=== PATIENT | female | born 1970 | race Caucasian/White ===

== ENCOUNTER → 2019-01-30 | Outpatient (CLI) | payer BC ==
--- NOTE | 2019-01-30 19:39 | Diagnostic Imaging Report ---
INDICATION: Routine screening. Comparison is made with prior mammograms from 11/14/2015 and 08/20/2014. 2-D and 3-D bilateral screening mammography was performed with Computer-Aided Detection (CAD) system. FINDINGS: Both breasts remain heterogeneously dense, limiting the sensitivity of mammography. No dominant mass or malignant-appearing microcalcifications are seen. The axillae are unremarkable. IMPRESSION: No mammographic features suspicious for malignancy are identified. ACR BI-RADS Category 1: Negative. Result letter will be mailed to the patient. Note: At least 10% of breast cancer is not imaged by mammography. Dictated by: Dictated on workstation # [id number]
== END ==
LOC: RAD 10:32
PROVIDERS: ATTEND Obstetrics & Gynecology
DX: Z12.31 Encounter for screening mammogram for malignant neoplasm of breast (principal)
CPT/HCPCS: 77067

== ENCOUNTER → 2020-12-23 | Outpatient (CLI) | payer BC ==
[~2020-12-23] MED LIST: CATHETER FLUSH 10 ML SYR IV PRN
--- NOTE | 2020-12-23 15:11 | Diagnostic Imaging Report ---
INDICATION: Hip pain. EXAMINATION: Three-phase bone scan. This study was performed following administration of 26.7 mCi of 90 9M technetium MDP. Blood flow, blood pool pool and delayed images of the pelvis lower lumbar spine and proximal femurs was obtained. COMPARISON: There is no prior study available for comparison. FINDINGS: On the delayed images there is increased uptake within the greater trochanter of the right femur. There appears to be a photopenic defect in the region of the right femoral head and neck suggesting a total hip prosthesis. The abnormal signal in the greater trochanter could be related to an acute/subacute bone injury. It would be less likely that this abnormal uptake is related to osteomyelitis as the blood flow study is generally unremarkable. However, the possibility that there is loosening of the prosthesis should be considered. If plain film examinations are available they would be helpful for comparison. There is no other abnormal uptake of the radiotracer to suggest an acute abnormality. IMPRESSION: 1.There is a small focus of abnormal uptake involving the greater trochanter on the right. Whether this is related to an acute/subacute bone injury or loosening of the suspected total hip prosthesis is not certain. Recommendations as above. 2. There is no acute bony abnormality identified otherwise. Dictated by: Dictated on workstation # [id number]
== END ==
LOC: CARD 11:26
PROVIDERS: ATTEND Physician Assistant
DX: M25.559 Pain in unspecified hip (principal)
CPT/HCPCS: 78315; A9503

== ENCOUNTER → 2021-04-14 | Outpatient (CLI) | payer BC | LOC: LABNPT 06:28 | PROVIDERS: ATTEND Orthopaedic Surgery | DX: Z01.812 Encounter for preprocedural laboratory examination (principal); Z20.822 Contact with and (suspected) exposure to COVID-19 | CPT/HCPCS: 87635 ==

== ENCOUNTER → 2021-04-18 | Outpatient (CLI) | payer BC ==
--- NOTE | 2021-04-18 09:26 | Diagnostic Imaging Report ---
INDICATION: Postmenopausal state. COMPARISON: None available FINDINGS: AP Spine L1-L4: [BMD (g/cm2): 1.020] [T-Score: -1.3] [Z-Score: -0.7] [BMD Previous: na] [BMD % Change: na] LT Hip Neck: [BMD (g/cm2): 0.949] [T-Score: -0.6] [Z-Score: 0.3] LT Hip Total: [BMD (g/cm2):0.926] [T-Score:-0.6] [Z-Score: -0.1] [BMD Previous: na] [BMD % Change: na] RT Hip Neck: [BMD (g/cm2):na] [T-Score:na] [Z-Score:na] RT Hip Total: [BMD (g/cm2):na] [T-score:na] [Z-Score:na] [BMD Previous:na] [BMD % Change:na] *Indicates significant change from prior examination based on 95% confidence level. World Health Organization criteria for BMD interpretation classify patients as Normal (T-score at or above -1.0), Osteopenic (T-score between -1.0 and -2.5) or Osteoporotic (T-score at or below -2.5). LIMITATIONS AND MODIFICATION: The right hip was not evaluated secondary to postsurgical changes. FRACTURE RISK (FRAX SCORE): The ten year probability of (%): Major Osteoporotic Fracture: [9.7] Hip Fracture: [1.4] IMPRESSION: 1. Osteopenia (Low bone mass). 2. Baseline examination. 3. See below National Osteoporosis Foundation guidelines on when to potentially initiate pharmacologic therapy. Based on the National Osteoporosis Foundation Guidelines, pharmacologic treatment should be initiated in any of the following, unless clinical conditions suggest otherwise: * Any patient with prior fragility fracture of the hip or vertebrae. A spine fracture indicates 5X risk for subsequent spine fracture and 2X risk for subsequent hip fracture. * Osteoporosis (T-score <-2.5). * Postmenopausal women and men age 50 and older with low bone mass/osteopenia (T-score between -1.0 and -2.5) by DXA and 10-year major osteoporotic fracture greater than 20% or a 10-year probability of hip fracture greater than 3%. These fracture risks are supplied above in the FRAX score, if applicable. * Clinician judgement and/or patient preferences may indicate treatment for people with 10-year fracture probabilities above or below these levels. Dictated by: Dictated on workstation # [id number]
== END ==
LOC: RAD 08:30
DX: M85.80 Other specified disorders of bone density and structure, unspecified site (principal); Z78.0 Asymptomatic menopausal state
CPT/HCPCS: 77080

== ENCOUNTER → 2022-11-02 | Outpatient (CLI) | payer BC ==
--- NOTE | 2022-11-02 16:05 | Diagnostic Imaging Report ---
PROCEDURE: MRI lumbar spine. TECHNIQUE: Multiplanar, multisequence MRI of the lumbar spine was performed without contrast. DATE: November 02, 2022. COMPARISON: None. INDICATION: 52-year-old female, chronic low back pain. FINDINGS: The alignment of the lumbar spine is unremarkable. There is no evidence of a diffuse marrow infiltrating or replacing process. There is moderate to severe disc height loss at L5-S1 with adjacent Modic type II endplate degenerative related changes. The additional disc heights are well preserved. There is no identified compression deformity, fracture or focal concerning bone lesion. The visualized cord and conus medullaris is unremarkable and terminates at the L1-L2 level. L1-L2: There is no disc bulge. The facet joints and ligamentum flavum are unremarkable. There is no foraminal narrowing. There is no spinal canal stenosis. L2-L3: There is no disc bulge. The facet joints and ligamentum flavum are unremarkable. There is no foraminal narrowing. There is no spinal canal stenosis. L3-L4: There is no disc bulge. The facet joints and ligamentum flavum are unremarkable. There is no foraminal narrowing. There is no spinal canal stenosis. L4-L5: There is no disc bulge. There are mild right facet degenerative changes. There is mild bilateral foraminal narrowing. There is no spinal canal stenosis. L5-S1: There is a very small posterior disc protrusion without nerve root contact. The facet joints and ligamentum flavum are unremarkable. There is no foraminal narrowing. There is no spinal canal stenosis. IMPRESSION: 1. Mild facet disc degenerative changes most notable at L4-L5 and L5-S1. There is mild bilateral foraminal narrowing at L4-L5. 2. No identified compression deformity, fracture or focal concerning bone lesion. Dictated by: Dictated on workstation # [id number]
== END ==
LOC: RAD 14:45
PROVIDERS: ATTEND Nurse Practitioner Family
DX: M47.816 Spondylosis without myelopathy or radiculopathy, lumbar region (principal); M47.817 Spondylosis without myelopathy or radiculopathy, lumbosacral region; M48.061 Spinal stenosis, lumbar region without neurogenic claudication
CPT/HCPCS: 72148